=== PATIENT | male | born 1975 | race Caucasian/White ===

== ENCOUNTER → 2020-07-12 | Outpatient (CLI) | payer OTHER | LOC: LAB 09:00 | PROVIDERS: ATTEND Nurse Anesthetist, Certified Registered | DX: Z01.812 Encounter for preprocedural laboratory examination (principal); K92.1 Melena; Z20.828 Contact with and (suspected) exposure to other viral communicable diseases | CPT/HCPCS: U0003 ==

== ENCOUNTER → 2020-07-16 | Day surgery (SDC) | payer OTHER ==
[~2020-07-16] MED LIST: IPRATRPIUM/ALBUTEROL 0.5/2.5MG 3 ML NEBU. NEB PRN; IV RINGERS SOLUTION,LACTATED 1,000 ML IV SCH; LIDOCAINE 2% PF 5 ML VIAL. ONE; MIDAZOLAM HCL PF 2 MG/2 ML VIAL. IV ONE; ONDANSETRON PF 4 MG/2 ML VIAL. IV PRN; PROPOFOL 10,000 MCG/ML (20ML) VIAL IV ONE
[2020-07-16 11:18] VITALS: BP 130/81
== END | disposition home or self-care (01) ==
LOC: SURG 10:05
PROVIDERS: ATTEND Emergency Medicine
DX: K92.1 Melena (principal); K64.8 Other hemorrhoids; K63.5 Polyp of colon; Z72.89 Other problems related to lifestyle
CPT/HCPCS: 45380; 88305; J2001; J2704; J7120